=== PATIENT | male | born 1995 | race Caucasian/White ===

== ENCOUNTER 2022-06-07 23:05 | Emergency (ER) | payer MEDICAID ==
[~2022-06-07] VITALS: Ht 180.3 cm; Wt 136.1 kg
--- NOTE | 2022-06-07 23:30 | NUR ---
[facility] FROM HOME SENT BY URGENT CARE MD D/T CXR RESULT PNA. COUGH X1 WK PRESCRIBED AMOX, PREDNISONE, INHALER. PT A/OX4. TOLERATING R/A WELL WITH NO RESP DISTRESS AT 96%. SAFETY MEASURES IN PLACE
--- NOTE | 2022-06-07 23:37 | NUR ---
Patient discharged to home in stable condition. Written and verbal after care instructions given. Patient verbalizes understanding of instruction. Pt ambulatory with a steady gait.
[2022-06-08 00:38] VITALS: BP 162/88
== END 2022-06-07 23:25 | disposition home or self-care (01) ==
LOC: ER 23:09
DX: J18.9 Pneumonia, unspecified organism (principal); K21.9 Gastro-esophageal reflux disease without esophagitis; J45.909 Unspecified asthma, uncomplicated